=== PATIENT | female | born 2000 | race Hispanic/Latino ===

== ENCOUNTER → 2018-10-27 | Outpatient (CLI) | payer OTHER ==
[~2018-10-27] MED LIST: CONRAY-43 43% 50ML VIAL (Q9960) As Ordered ONE; PROHANCE 279.3MG/ML 5ML VIAL (A9576) As Ordered ONE
--- NOTE | 2018-10-27 10:03 | REP ---
MR ARTHROGRAM LEFT SHOULDER: TECHNIQUE: Axial T2 fat sat, coronal oblique T1, T2 fat sat, post arthrogram axial T1 fat sat, proton density, coronal oblique T1 fat sat, T2 sat, sagittal oblique T2 fat sat, ABER T1 fat sat. There is increased signal on T2 weighted images in the distal supraspinatus tendon compatible with tendinopathy and a probable partial bursal surface tear. There is mild adjacent fluid in the subacromial subdeltoid bursae. I do not see a significant hypertrophic degenerative change at the acromioclavicular joint. The acromion is type 1. Biceps tendon is within the bicipital groove with no tenosynovitis. There is no Hill Sach's deformity. The deltoid muscle demonstrates no abnormal signal. The biceps labral complex is intact. There is no evidence of a labral tear. No paralabral cyst is seen. There is no bone marrow edema or occult fracture. Normal amount of fluid is seen in the glenohumeral joint. IMPRESSION: Supraspinatus tendinopathy with an apparent partial bursal surface tear distally. There is a small amount of adjacent fluid in the subacromial subdeltoid bursae. No evidence of a labral tear. Electronically Signed by Troy Lynch MD 10/27/2018 10:12 A
--- NOTE | 2018-10-27 13:25 | REP ---
Procedure: Left shoulder arthrogram The procedure was performed under the direct supervision of Dr. Lynch. History: Left shoulder pain The benefits and risks including but not limited to pain, infection, bleeding and anaphylaxis were explained to the patient and informed consent was obtained. Technique: The left glenohumeral joint space was localized using fluoroscopic guidance. The skin was prepped and draped in a sterile fashion. 1% lidocaine was used as a local anesthetic. Using fluoroscopic guidance a 22 gauge spinal needle was inserted and advanced into the joint. 0.5 ml of Conray 43 was injected to verify placement. 11 ml of a solution containing 20 ml of sterile saline and 0.15 ml of ProHance was injected into the joint. The needle was removed and the patient was taken to MRI for postprocedural imaging. The the patient tolerated the procedure well and there were no immediate complications. Less than 6 seconds of fluoro time was utilized for this procedure. Reviewed by GABINO Trivedi 10/27/2018 12:12 P Electronically Signed by Troy Lynch MD 10/27/2018 01:17 P
== END ==
LOC: M RADPRO 06:30
PROVIDERS: ATTEND Physician Assistant
DX: M75.92 Shoulder lesion, unspecified, left shoulder (principal); M25.512 Pain in left shoulder
CPT/HCPCS: 23350; 73223; 77002; A9576; Q9960

== ENCOUNTER → 2019-10-31 | Emergency (ER) | payer OTHER ==
[2019-12-14 13:18] LABS: CHLAMYDIA DNA AMPLIFICATION NEGATIVE (NEGATIVE); GC DNA AMPLIFICATION NEGATIVE (NEGATIVE)
[2020-01-05 10:07] LABS: HEMATOCRIT 40.6 % (36.0-47.0); HEMOGLOBIN 13.1 g/dl (12.0-15.5); MEAN CORPUSCULAR HEMOGLOBIN 25.6 pg (27.0-33.0); MEAN CORPUSCULAR HGB CONC 32.3 g/dl (32.0-36.5); MEAN CORPUSCULAR VOLUME 79.5 fl (80.0-96.0); PLATELET COUNT, AUTOMATED 291 10^3/uL (150-450); RED BLOOD COUNT 5.11 10^6/uL (4.00-5.40); WHITE BLOOD COUNT 7.1 10^3/uL (4.0-10.0)
[2020-01-14 14:03] LABS: BLOOD UREA NITROGEN 10 MG/DL (7-18); CALCIUM LEVEL 9.1 MG/DL (8.5-10.1); CARBON DIOXIDE LEVEL 26 MEQ/L (21-32); CHLORIDE LEVEL 107 MEQ/L (98-107); CREATININE FOR GFR 0.63 MG/DL (0.55-1.30); GLOMERULAR FILTRATION RATE > 60.0 (>60); GLUCOSE, FASTING 85 MG/DL (70-100); HCG, SERUM QUANTITATIVE 7386 MIU/ML; POTASSIUM SERUM 4.1 MEQ/L (3.5-5.1); SODIUM LEVEL 141 MEQ/L (136-145)
== END | disposition home or self-care (01) ==
LOC: M ED 18:10
DX: O20.0 Threatened abortion (principal); O36.8911 Maternal care for other specified fetal problems, first trimester, fetus 1; Z3A.10 10 weeks gestation of pregnancy